=== PATIENT | male | born 1945 | race Caucasian/White ===

== ENCOUNTER 2022-02-22 08:42 | Outpatient (CLI) | payer MEDICARE, BC | END 2022-02-22 08:43 | disposition home or self-care (01) | LOC: CSHMRI 08:42 | PROVIDERS: ATTEND Orthopaedic Surgery | DX: M25.561 Pain in right knee (principal); S83.241A Other tear of medial meniscus, current injury, right knee, initial encounter; M94.8X8 Other specified disorders of cartilage, other site; M71.21 Synovial cyst of popliteal space [Baker], right knee ==

== ENCOUNTER 2024-07-23 07:03 | Day surgery (SDC) | payer MEDICARE, BC ==
[2024-07-23] MEDS ORDERED: Lidocaine 1% (PF) 30 ML VIAL ONE (07:08)
[2024-07-23] MEDS ORDERED: Nitroglycerin 50 MG/250 ML BOT 0 ML ONE (07:08)
[2024-07-23] MEDS ORDERED: Heparin 10,000 UNITS/ 10 ML VIAL ONE ×2 (07:08→08:18)
[2024-07-23] MEDS ORDERED: Atropine Sulfate 1 mg/1 ml Vial ONE (07:09)
[2024-07-23] MEDS ORDERED: Midazolam HCl 2 mg/2 ml Vial ONE (07:09)
[2024-07-23] MEDS ORDERED: Fentanyl 100 MCG/2 ML VIAL ONE (07:09)
[2024-07-23] MEDS ORDERED: Adenosine 6 mg (2 mL) VIAL ONE (07:09)
[2024-07-23 07:25] LABS: #Basophils 0.05 10x3/uL (0.0-0.2); #Eosinophils 0.55 10x3/uL (0.0-0.5); #Monocytes 0.75 10x3/uL (0.0-1.1); #Neutrophils 4.26 10x3/uL (1.5-8.4); %Basophils 0.7 % (0.0-2.0); %Eosinophils 7.9 % (0.0-6.0); %Lymphocytes 19.5 % (18.0-47.0); %Monocytes 10.7 % (0.0-10.0); %Neutrophils 60.9 % (40.0-75.0); Hematocrit 38.4 % (38.8-50.0); Hemoglobin 12.4 g/dL (13.5-17.5); Mean Corpuscular HGB CONC 32.3 g/dL (32.0-36.0); Mean Corpuscular Hemoglobin 30.8 pg (27.0-33.0); Mean Corpuscular Volume 95.5 fL (81.2-95.1); Mean Platelet Volume 10.3 fL (7.4-10.4); Platelet Count 204 10x3/uL (150-450); RBC Distribution Width 14.2 % (11.5-14.5); Red Blood Cell (RBC) Count 4.02 10x6/uL (4.32-5.72); White Blood Cell (WBC) Count 6.99 10x3/uL (3.5-10.5)
[2024-07-23 07:39] VITALS: BP 149/100; TEMP 97.7
[2024-07-23 07:43] LABS: Anion Gap 16 mmol/L (10-20); BUN (Urea Nitrogen) 24 mg/dL (8.4-25.7); Calc. Creatinine Clearance 84 mL/min (70-130); Calcium 10.1 mg/dL (7.8-10.44); Carbon Dioxide 20 mmol/L (23-31); Chloride 111 mmol/L (98-107); Estimated GFR 78; Glucose 105 mg/dL (83-110); Potassium 3.8 mmol/L (3.5-5.1); Sodium 143 mmol/L (136-145)
[2024-07-23] MEDS ORDERED: hydrALAZINE 20 MG/ML VIAL ONE (08:12)
[2024-07-23] MEDS ORDERED: TICAGRELOR 90 MG TABLET ONE (08:24)
[2024-07-23 08:31] LABS: INR-International Normal Ratio 1.1; PTT 25.2 sec (22.0-33.0)
[2024-07-23] MEDS ORDERED: Protamine Sulfate 50 MG/5 ML VIAL ONE (08:44)
[2024-07-23] MEDS ORDERED: Iopamidol 300 61% 100 ML VIAL FS ONE (09:53)
== END 2024-07-23 11:11 | disposition home or self-care (01) ==
LOC: CSHCCL 07:03
PROVIDERS: ATTEND Internal Medicine Cardiovascular Disease
PROC: B300YZZ Plain Radiography of Thoracic Aorta using Other Contrast (ICD-10-PCS; principal; 2024-07-23)
PROC: 4A023N7 Measurement of Cardiac Sampling and Pressure, Left Heart, Percutaneous Approach (ICD-10-PCS; 2024-07-23)
PROC: B208YZZ Plain Radiography of Left Internal Mammary Bypass Graft using Other Contrast (ICD-10-PCS; 2024-07-23)
PROC: B50 Imaging, Veins, Plain Radiography (ICD-10-PCS; 2024-07-23)
DX: I25.6 Silent myocardial ischemia (principal); I25.10 Atherosclerotic heart disease of native coronary artery without angina pectoris; I11.0 Hypertensive heart disease with heart failure; I50.40 Unspecified combined systolic (congestive) and diastolic (congestive) heart failure; Z95.5 Presence of coronary angioplasty implant and graft
CPT/HCPCS: 71046; 80048; 85025; 85347 ×2; 85610; 85730; 92978; 92979; 93459; C1753; C1760 ×2; C1769; C1874; C1887; C9600; J0360; J1644; J2250; J2720; J3010; 92928; 99152; 99153; J0153; J0461; Q9967

== ENCOUNTER 2024-07-23 14:29 | Inpatient (IN) | payer MEDICARE, BC ==
[2024-07-23] MEDS ORDERED: Acetaminophen 500 MG TAB ONE (14:57)
[2024-07-23] MEDS ORDERED: Prochlorperazine 10 MG/2 ML VIAL ONE (14:57)
[2024-07-23] MEDS ORDERED: Labetalol HCl 100 MG/20 ML VIAL ONE (14:57)
[2024-07-23 15:38] LABS: #Basophils 0.03 10x3/uL (0.0-0.2); #Eosinophils 0.08 10x3/uL (0.0-0.5); #Monocytes 0.52 10x3/uL (0.0-1.1); #Neutrophils 6.21 10x3/uL (1.5-8.4); %Basophils 0.4 % (0.0-2.0); %Eosinophils 1.1 % (0.0-6.0); %Lymphocytes 6.5 % (18.0-47.0); %Monocytes 7.1 % (0.0-10.0); %Neutrophils 84.6 % (40.0-75.0); Hematocrit 39.2 % (38.8-50.0); Hemoglobin 13.1 g/dL (13.5-17.5); Mean Corpuscular HGB CONC 33.4 g/dL (32.0-36.0); Mean Corpuscular Hemoglobin 31.8 pg (27.0-33.0); Mean Corpuscular Volume 95.1 fL (81.2-95.1); Mean Platelet Volume 10.3 fL (7.4-10.4); Platelet Count 194 10x3/uL (150-450); RBC Distribution Width 14.6 % (11.5-14.5); Red Blood Cell (RBC) Count 4.12 10x6/uL (4.32-5.72); White Blood Cell (WBC) Count 7.34 10x3/uL (3.5-10.5)
[2024-07-23 15:54] LABS: ALT (SGPT) 35 U/L (Less than 45); AST (SGOT) 25 U/L (11-34); Albumin 4.6 g/dL (3.1-4.5); Alkaline Phosphatase 62 U/L (40-110); Anion Gap 16 mmol/L (10-20); BUN (Urea Nitrogen) 22 mg/dL (8.4-25.7); Bilirubin, Total 0.9 mg/dL (0.3-1.2); Calc. Creatinine Clearance 0 mL/min (70-130); Calcium 9.9 mg/dL (7.8-10.44); Carbon Dioxide 21 mmol/L (23-31); Chloride 109 mmol/L (98-107); Estimated GFR 89; Glucose 119 mg/dL (83-110); Potassium 3.9 mmol/L (3.5-5.1); Protein, Total 7.6 g/dL (5.8-8.1); Sodium 142 mmol/L (136-145)
[2024-07-23] MEDS ORDERED: Nitroglycerin 2% Ointment 1 INCH/1 GM Packet ONE (17:49)
[2024-07-23] MEDS ORDERED: hydrALAZINE 20 MG/ML VIAL ONE (17:49)
[2024-07-23] MEDS ORDERED: Ondansetron ODT 4 MG TAB PO PRN (18:21)
[2024-07-23 18:28] LABS: Troponin I 0.066 ng/mL (< 0.028)
[2024-07-23] MEDS: TICAGRELOR 90 MG TABLET PO SCH (20:56)
[2024-07-23] MEDS: Lisinopril 20 MG TAB PO SCH (20:57)
[2024-07-23 21:33] VITALS: BMI 34.3
[2024-07-23] MEDS: hydrALAZINE 20 MG/ML VIAL SLOW IVP PRN (21:48)
[2024-07-23] MEDS: Ondansetron PF 4 MG/2 ML Vial IVP PRN (22:03)
[2024-07-24] MEDS: Nitroglycerin 2% Ointment 1 INCH/1 GM Packet TOP SCH (03:14)
[2024-07-24] MEDS: Acetaminophen 325 MG TAB PO PRN (04:12)
[2024-07-24 05:10] LABS: Anion Gap 17 mmol/L (10-20); BUN (Urea Nitrogen) 22 mg/dL (8.4-25.7); Calc. Creatinine Clearance 107 mL/min (70-130); Carbon Dioxide 17 mmol/L (23-31); Chloride 109 mmol/L (98-107); Estimated GFR 90; Glucose 135 mg/dL (83-110); Potassium 3.6 mmol/L (3.5-5.1); Sodium 139 mmol/L (136-145); Troponin I 0.127 ng/mL (< 0.028)
[2024-07-24 05:19] LABS: #Basophils Less than 0.03 10x3/uL (0.0-0.2); #Eosinophils Less than 0.03 10x3/uL (0.0-0.5); #Monocytes 0.76 10x3/uL (0.0-1.1); #Neutrophils 9.18 10x3/uL (1.5-8.4); %Basophils 0.2 % (0.0-2.0); %Eosinophils 0.2 % (0.0-6.0); %Lymphocytes 5.8 % (18.0-47.0); %Monocytes 7.2 % (0.0-10.0); %Neutrophils 86.4 % (40.0-75.0); Hematocrit 37.7 % (38.8-50.0); Hemoglobin 12.7 g/dL (13.5-17.5); Mean Corpuscular HGB CONC 33.7 g/dL (32.0-36.0); Mean Platelet Volume 10.7 fL (7.4-10.4); Platelet Count 235 10x3/uL (150-450); RBC Distribution Width 14.7 % (11.5-14.5); Red Blood Cell (RBC) Count 3.97 10x6/uL (4.32-5.72); White Blood Cell (WBC) Count 10.62 10x3/uL (3.5-10.5)
[2024-07-24] MEDS ORDERED: Metoprolol Succinate XL 50 MG ER.TAB PO SCH (09:00)
[2024-07-24] MEDS ORDERED: Isosorbide Mononitrate 30 MG ER.TAB PO SCH (09:00)
[2024-07-24] MEDS: Ezetimibe 10 MG TAB PO SCH (09:32)
[2024-07-24] MEDS: Isosorbide Mononitrate 30 MG ER.TAB PO SCH (09:32)
[2024-07-24] MEDS: Aspirin 81 mg Enteric Coated Tablet PO SCH (09:32)
[2024-07-24] MEDS: Enoxaparin 40 MG (0.4 mL) SYRINGE SC SCH (09:32)
[2024-07-24] MEDS: Pantoprazole 40 MG DR.TAB PO SCH (09:33)
[2024-07-24] MEDS: Sertraline 25 MG TAB PO SCH (09:33)
[2024-07-24] MEDS: Carvedilol 25 MG TAB PO SCH ×2 (11:16→17:04)
[2024-07-24] MEDS: Valsartan 80 MG TAB PO SCH (11:17)
[2024-07-25 08:22] VITALS: BP 156/78; TEMP 98.6
== END 2024-07-25 11:10 | disposition home or self-care (01) | DRG 287 ==
LOC: CSHERS 14:29 → SUATTDRO 14:29 → CSHTELE 18:23 → OBSVTOIN 18:23
PROVIDERS: ADMIT Family Medicine; ATTEND Family Medicine
PROC: B300YZZ Plain Radiography of Thoracic Aorta using Other Contrast (ICD-10-PCS; principal; 2024-07-23)
PROC: 4A023N7 Measurement of Cardiac Sampling and Pressure, Left Heart, Percutaneous Approach (ICD-10-PCS; 2024-07-23)
PROC: B208YZZ Plain Radiography of Left Internal Mammary Bypass Graft using Other Contrast (ICD-10-PCS; 2024-07-23)
PROC: B50 Imaging, Veins, Plain Radiography (ICD-10-PCS; 2024-07-23)
DX: I16.1 Hypertensive emergency (principal); I24.89 Other forms of acute ischemic heart disease; J81.1 Chronic pulmonary edema; I50.40 Unspecified combined systolic (congestive) and diastolic (congestive) heart failure; I25.10 Atherosclerotic heart disease of native coronary artery without angina pectoris; K21.9 Gastro-esophageal reflux disease without esophagitis; I16.0 Hypertensive urgency; F32.9 Major depressive disorder, single episode, unspecified; E78.5 Hyperlipidemia, unspecified; Z95.1 Presence of aortocoronary bypass graft; Z95.5 Presence of coronary angioplasty implant and graft; Z79.82 Long term (current) use of aspirin; Z79.899 Other long term (current) drug therapy; Z79.02 Long term (current) use of antithrombotics/antiplatelets; I25.6 Silent myocardial ischemia; I11.0 Hypertensive heart disease with heart failure
CPT/HCPCS: 36415; 70450; 71045; 71046; 80048; 83880; 84443; 84484; 85025; 85347; 85610; 85730; 92928; 92978; 92979; 93005; 93010; 93459; 94760; 94762; 96374; 96375; 96376; 99152; 99153; C1753; C1760; C1769; C1874; C1887; C9600; J0153; J0360; J0461; J0780; J1644; J1650; J2250; J2405; J2720; J3010; Q9967